=== PATIENT | male | born 1945 ===

== ENCOUNTER 2018-06-26 11:32 | Outpatient (CLI) | payer MEDICARE ==
--- NOTE | 2018-06-26 12:54 | XRay Report ---
Left ribs: 3 views: History: Rib pain. Findings: No fracture or lytic lesion. Impression: No evidence of acute fracture.
--- NOTE | 2018-06-26 12:56 | XRay Report ---
Left wrist 3 views: History: Pain. Findings: There is arthritic changes noted in the first and second carpometacarpal joint. Mild arthritic changes noted over the radial aspect of the intercarpal joint. No fracture or dislocation of the wrist. Incidentally noted transverse nondisplaced fracture distal diaphysis of right ulna. Impression: Findings as detailed above.
--- NOTE | 2018-06-26 12:57 | XRay Report ---
Left forearm 2 views: History: Fracture left forearm. Next Findings: Transverse nondisplaced fracture distal diaphyses of left ulna and at the junction of middle and distal third. Impression: Fracture distal left ulna.
== END 2018-06-26 11:33 | disposition home or self-care (01) ==
LOC: SPVIMAG 11:32
PROVIDERS: ATTEND Internal Medicine
DX: S52.602A Unspecified fracture of lower end of left ulna, initial encounter for closed fracture (principal); M19.032 Primary osteoarthritis, left wrist; R07.81 Pleurodynia; X58.XXXA Exposure to other specified factors, initial encounter; Y93.89 Activity, other specified; Y92.89 Other specified places as the place of occurrence of the external cause; Y99.8 Other external cause status